=== PATIENT | male | born 1950 | race Caucasian/White ===

== ENCOUNTER 2017-10-07 15:59 | Emergency (ER) | payer MEDICARE ==
[~2017-10-07] VITALS: Ht 177.8 cm; Wt 81.6 kg
[~2017-10-07 15:59] MED LIST: ASP325T PO; EZET10TA5 PO; HYDR-3720 PO; HYDR-3729 PO; INSASP10V SQ; INSU100C4 SQ; METO-310 PO; MTF500T PO; ONDA4TAB8 PO; SITA100T PO; TAMS0.4C2 PO; [UNRECOGNIZED DRUG - CODE] PO; [UNRECOGNIZED DRUG - OTHER] PO; metoprolol
--- OUTSIDE RECORDS SUMMARY | 2017-10-07 16:04 | XMS REPORT | Continuity of Care Document ---
Author Author [employer] Organization [facility] Address Unknown Phone Unavailable Care Team Providers Care Sliver Former Name Role Phone [employer] Unavailable Unavailable Problems Medications Allergies, Adverse Reactions, Alerts Immunizations Results Vital Signs Encounters Location Location Details Encounter Type Encounter Number Reason For Visit Attending Provider ADM Date DC Date Status Source OUTPATIENT [id number] CELENA LUGO 08/29/2016 08/29/2016 Active [facility] OUTPATIENT [id number] CELENA LUGO 03/04/2017 Active [facility] O Active [facility] Procedures Plan of Care Social History Assessment and Plan Family History Advance Directives Functional Status
--- OUTSIDE RECORDS SUMMARY | 2017-10-07 16:05 | XMS REPORT | Clinical Summary ---
Author Author [facility] Organization [facility] Address Unknown Phone Unavailable Care Team Providers Care Curriculum And Assessment Coordinator Name Role Phone Beny Chavis MD Unavailable Yoel Mccrary PA-C Unavailable Nick Martínez MD Unavailable Doroteo Patrick MD Unavailable Sia Krause PRODUCT ACCOUNTANT Unavailable Unavailable Tramaine Matias MD PCP Patrizia Alvarado PRODUCT ACCOUNTANT Unavailable Source Comments Some departments are not documenting in the electronic medical record. If you do not see the information that you expected, contact Release of Information in the Health Information Management department at [phone] for further assistance in locating additional records.[facility] Allergies Active Allergy Reactions Severity Noted Date Comments Pioglitazone PALPITATIONS 06/04/2011 Amlodipine-Olmesartan JOINT PAIN 06/04/2011 Rosuvastatin SEE COMMENTS 06/04/2011 Muscle weakness Enalapril SEE COMMENTS 06/04/2011 Muscle weakness Iodine HYPOTENSION 06/04/2011 Atorvastatin SEE COMMENTS 06/04/2011 Muscle weakness Simvastatin SEE COMMENTS 06/04/2011 Muscle weakness Current Medications Prescription Sig. Disp. Refills Start End Date Status Date MULTIVITAMIN WITH Take 1 Tab by mouth Active MINERALS (MULTIVITAMIN & daily. MINERAL FORMULA PO) metoprolol (LOPRESSOR) 25 Take 12.5 mg by mouth Active mg tablet twice daily. aspirin EC 81 mg tablet Take 1 Tab by mouth 90 Tab 3 01/25/20 Active daily. 13 sildenafil(+) (VIAGRA) 50 Take 1 Tab by mouth as 10 Tab 5 01/25/20 Active mg tablet Needed for Erectile 13 dysfunction. lovastatin(+) (MEVACOR) Take 1 Tab by mouth every 07/26/19 Active 20 mg tablet 48 hours. 14 metFORMIN (GLUCOPHAGE) TAKE ONE TABLET BY MOUTH 60 Tab 6 08/19/19 Active 1,000 mg tablet TWICE DAILY WITH FOOD 17 coQ10 (ubiquinol) 100 mg Take 1 Cap by mouth Active cap daily. linagliptin-metformin Take 1 Tab by mouth 90 Each 3 09/02/19 Active (JENTADUETO XR) 5-1,000 daily. Will replace 17 mg TBph individual linagliptin and metformin because in combo [facility] CONTOUR test Use 1 Strip as directed 400 Strip 3 09/05/19 Active strip before meals and at 17 bedtime. E11.65 Blood-Glucose Meter Use as directed 1 Kit 0 09/06/19 Active (CONTOUR METER) kit 17 clobetasol (TEMOVATE) 03/02/20 Active 0.05 % topical cream 17 ezetimibe (ZETIA) 10 mg Take 0.5 tablets by mouth 45 tablet 3 Active tablet daily. 17 temazepam (RESTORIL) 15 Take 1 capsule by mouth 90 capsule 3 03/04/20 Active mg capsule at bedtime as needed. 17 Active Problems Problem Noted Date Dog bite 1.201612/20/2016 Overview: Dog bit lower legs bilat in May-Jun 2016; [facility]. Antibiotics wound treatment; returned for check ups? Did not remember going back Chews tobacco 06/29/2014 Last Assessment & Plan: Complete cessation of all tobacco products recommended,. Insomnia 01/24/2013 Last Assessment & Plan: I suggested that he try temazepam rather than Benadryl for his insomnia. Erectile dysfunction 01/24/2013 Last Assessment & Plan: OK to try 50 mg Viagra--prescription sent Abnormal cardiovascular stress test 10/05/2012 S/P CABG (coronary artery bypass graft) 10/05/2012 Overview: 05/2011 - CAB X 4 ([place]). [id number]. SVG-OM. SVG-LPD. Allergic to radiographic dye 10/05/2012 Angina pectoris (HCC) 10/05/2012 Agent [place] poisoning 07/25/2011 Dyslipidemia 07/25/2011 Overview: Does not tolerate statins L ast Assessment & Plan: He is willing to add Zetia 5 mg per day in an effort to get his LDL below 70. We will follow-up with him in about 6 weeks and arrange for a follow-up lipid profile. HTN (hypertension) 06/05/2011 Last Assessment & Plan: His BP at home is about 130/70 and I think he simply has a little bit of whitecoat hypertension. CAD (coronary artery disease) 06/04/2011 Overview: 06/04/2011 - Presented with exertional angina. Cath in [place] 06/04/11 ( Herminio Amaro MD): LV EDP 20. EF 60%. 50% distal L main. Ostial 60% LAD. Subtotal mid-LAD. 50% proximal MEDIA STRATEGIST. 95% ostial OM-1. Non-dominant RCA. Referred for CABG. 05/2011 - CAB X 4 ([place]). [id number]. SVG-OM. SVG-LPD. 08/30/12 abnormal stress thallium, LVEF 60%, reversible defect involving the distal anterior, anterior septal, apical and distal inferior adhikari likely in the LAD territory. 10/05/12: Cardiac Cath; No LV gram: [place] LAD with 99% stenosis, non functional MCLEAN to LAD with distal Kink. (Xience ADALBERTO 3.0 x 18, 3.0 x 12). Distal left main 30-40% stenosis. Left Circumflex with 30% proximal, 50% distal. Patent SVG of OM, Occluded [place] RCA with occluded SVG to LPDA- Continue ASA lifelong & Plavix >/=1 year w/o interruption. 04/2015 Kahi TM Thallium: EF 65%. Mildly abnormal, but not high risk. Mild distal LAD ischemia is present and was seen mainly on the stress upright images. No high risk prognostic indicators present. Exercise ECG is positive for ischemia, the changes occurred at peak exercise and they resolved in recovery. Excellent exercise capacity with a normal heart rate and hypertensive blood pressure response to exercise (in stage III the OV=559/40 mmHg, on the second minute of recovery the CE=961/40 mmHg). L ast Assessment & Plan: I have recommended surveillance stress testing every 3 years and will schedule a myocardial perfusion study I see below back next year. He is very active and has no angina symptoms. Type II diabetes mellitus (HCC) 06/04/2011 Last Assessment & Plan: 03-10-14 glucose 131, A1c 6.2% metformin dosing just altered per endocrinology last week. Vitamin D 25-OH level=72. Patient inquired regarding vitamin D dosing, he'll add up all the vitamin D in each of his supplements and inform endocrinology Recommended weight maintenance. Dietitian available via endocrinology p.r.n. Resolved Problems Problem Noted Date Resolved Date Acute blood loss anemia 06/06/2011 10/05/2012 Immunizations Name Dates Previously Given Next Due FLU VACCINE >3YO 04/15/2012 Flu Vaccine Trivalent=>3 04/05/2015, 03/08/2014 Yo (Preservative Free) Family History Medical History Relation Name Comments Circulatory problem Brother Cancer Father lung Cancer Mother ovarian Relation Name Status Comments Brother Alive Father (Age 68) Mother (Age 73) Social History Tobacco Use Types Packs/Day Years Used Date Former Smoker 0.5 Smokeless Tobacco: Chew Quit: Current User 06/04/1975 Tobacco Cessation: Counseling Given: No Alcohol Use Drinks/Week oz/Week Comments No Sex Assigned at Date Recorded Not on file Last Filed Vital Signs Vital Sign Reading Time Taken Blood Pressure 158/82 03/04/2017 10:41 AM CDT Pulse 70 03/04/2017 10:41 AM CDT Temperature 37.3 C (99.1 F) 10/05/2015 12:22 PM CDT Respiratory Rate 16 04/15/2012 10:55 AM CDT Oxygen Saturation 97% 10/05/2015 7:50 PM CDT Inhaled Oxygen - - Concentration Weight 74 kg (163 lb 1.6 oz) 03/04/2017 10:41 AM CDT Height 181.6 cm (5' 11.5") 03/04/2017 10:41 AM CDT Body Mass Index 22.43 03/04/2017 10:41 AM CDT Plan of Treatment Health Maintenance Due Date Last Done Comments HEPATITIS C SCREENING 1949 PERTUSSIS VACCINE 1960 TETANUS VACCINE 1966 COLORECTAL CANCER 1999 SCREENING PHYSICAL (COMPREHENSIVE) 07/11/2012 07/11/2011 EXAM ABDOMINAL AORTIC ANEURYSM 2014 SCREENING PREVNAR/PNEUMOVAX (#2) 03/15/2017 03/15/2016 HBA1C 06/21/2017 12/19/2016, 08/29/2016, 04/05/2015, Additional history exists MICROALBUMIN 08/29/2017 08/29/2016, 09/09/2013 DILATED EYE EXAM 12/19/2017 12/19/2016 FOOT EXAM 12/19/2017 12/19/2016, 08/29/2016, 06/15/2011 (Previously completed) INFLUENZA VACCINE 03/15/2018 03/15/2016, 04/05/2015, 03/08/2014, Additional history exists SHINGLES VACCINE Completed 03/15/2016 Results Not on filefrom Last 3 Months
--- OUTSIDE RECORDS SUMMARY | 2017-10-07 16:05 | XMS REPORT | Continuity of Care Document ---
Author Author [facility] Organization [facility] Address Unknown Phone Unavailable Allergies Active Description Code Type Severity Reaction Onset Reported/Identified Relationship to Patient Clinical Status Yes iodine [id number] Drug Allergy Severe N/A 11/12/2009 Yes amlodipine besylate [id number] Drug Allergy Unknown N/A 10/03/2015 Yes atorvastatin calcium [id number] Drug Allergy Unknown N/A 10/03/2015 Yes enalapril [id number] Drug Allergy Unknown N/A 10/03/2015 Yes ezetimibe [id number] Drug Allergy Unknown N/A 10/03/2015 Yes olmesartan medoxomil [id number] Drug Allergy Unknown N/A 10/03/2015 Yes pioglitazone HCl [id number] Drug Allergy Unknown N/A 10/03/2015 Yes rosuvastatin calcium [id number] Drug Allergy Unknown N/A 10/03/2015 Yes simvastatin [id number] Drug Allergy Unknown N/A 10/03/2015 Medications There is no data. Problems Date Dx Coded Attending Type Code Diagnosis Diagnosed By 11/13/2009 Ot 592.1 11/13/2009 Ot 789.09 06/04/2011 Ot 250.00 06/04/2011 Ot 272.4 06/04/2011 Ot 401.9 06/04/2011 Ot 411.1 06/04/2011 Ot 414.01 06/04/2011 Ot V58.69 08/04/2011 Ot V45.81 08/04/2011 Ot V57.89 07/30/2012 Ot 562.10 07/30/2012 Ot V76.51 07/20/2014 Ot 250.00 07/20/2014 Ot 397.0 07/20/2014 Ot 401.9 07/20/2014 Ot 424.0 07/20/2014 Ot 786.50 07/20/2014 Ot V72.84 07/20/2014 Ot 250.00 07/20/2014 Ot 397.0 07/20/2014 Ot 401.9 07/20/2014 Ot 424.0 07/20/2014 Ot 786.50 07/20/2014 Ot V72.84 10/02/2015 CATALAN DO, JAVON L Ot N20.0 CALCULUS OF KIDNEY 10/02/2015 CATALAN DO, JAVON L Ot Z87.442 PERSONAL HISTORY OF URINARY CALCULI 10/03/2015 JASS CONLEY MD Ot E11.9 TYPE 2 DIABETES MELLITUS WITHOUT COMPLIC 10/03/2015 JASS CONLEY MD Ot I25.10 ATHSCL HEART DISEASE OF [place] CORONARY 10/03/2015 JASS CONLEY MD Ot N13.30 UNSPECIFIED HYDRONEPHROSIS 10/03/2015 JASS CONLEY MD Ot N20.2 CALCULUS OF KIDNEY WITH CALCULUS OF [place] 10/03/2015 JASS CONLEY MD Ot Z79.4 QA LEAD (CURRENT) USE OF INSULIN 10/03/2015 CATALAN DO, JAVON L Ot N20.0 CALCULUS OF KIDNEY 10/03/2015 CATALAN DO, JAVON L Ot Z87.442 PERSONAL HISTORY OF URINARY CALCULI 11/14/2015 CATALAN DO, JAVON L Ot N20.0 CALCULUS OF KIDNEY 11/14/2015 CATALAN DO, JAVON L Ot Z87.442 PERSONAL HISTORY OF URINARY CALCULI 01/14/2016 CATALAN DO, JAVON L Ot N20.0 CALCULUS OF KIDNEY 01/14/2016 CATALAN DO, JAVON L Ot Z87.442 PERSONAL HISTORY OF URINARY CALCULI 05/15/2016 CATALAN DO, JAVON L Ot N20.0 CALCULUS OF KIDNEY 05/15/2016 CATALAN DO, JAVON L Ot Z87.442 PERSONAL HISTORY OF URINARY CALCULI 10/13/2016 CATALAN DO, JAVON L Ot N20.0 CALCULUS OF KIDNEY 10/13/2016 CATALAN DO, JAVON L Ot Z87.442 PERSONAL HISTORY OF URINARY CALCULI 12/13/2016 CATALAN DO, JAVON L Ot N20.0 CALCULUS OF KIDNEY 12/13/2016 CATALAN DO, JAVON L Ot Z87.442 PERSONAL HISTORY OF URINARY CALCULI Procedures There is no data. Results There is no data. Encounters ACCT No. Visit Date/Time Discharge Status Pt. Type Provider Facility Loc./Unit Complaint [id number] 10/02/2015 20:07:00 10/03/2015 07:36:00 DIS Inpatient YAEL GODWIN, JASS Gloria [facility] 4TH INTRACTABLE N/V,KIDNEY STONE [id number] 10/02/2015 12:35:00 10/02/2015 13:50:00 DIS Outpatient HOSSEIN FULLER, JAVON Aguilar [facility] ER RIGHT FLANK PAIN [id number] 10/07/2017 16:01:00 ACT Emergency LIEN GODWIN, ALFONSO Almaguer [facility] ER RIGHT FINGER LAC [id number] 07/20/2014 09:09:00 Document Registration [id number] 07/30/2012 09:41:00 Document Registration [id number] 07/28/2012 08:21:00 Document Registration [id number] 08/04/2011 11:58:00 Document Registration [id number] 06/04/2011 16:05:00 Document Registration [id number] 06/03/2011 10:00:00 Document Registration [id number] 11/12/2009 22:35:00 Document Registration
--- NOTE | 2017-10-07 16:49 | Diagnostic Imaging Report ---
PATIENT HISTORY: Injury of the right hand with lacerations of the right first, second, and third digits. Cut hand with saw. TECHNIQUE: Four views of the right hand. COMPARISON: None. FINDINGS: There is a comminuted fracture through the neck of the right thumb proximal phalanx, with significant bone void dorsally. There is flexion of the interphalangeal joint consistent with rupture of the extensor tendon. A soft tissue defect is seen dorsal to the interphalangeal joint. There is also a markedly comminuted fracture involving the index finger middle phalangeal head and neck, and possibly the distal phalangeal base as well. There is mild radial angulation of the distal phalanx with persistent flexion of the distal interphalangeal joint consistent with extensor tendon rupture. There is overlying soft tissue edema and laceration. At the long finger, there is a focal bone defect at the radial aspect of the distal proximal phalangeal neck and shaft, with overlying laceration at the soft tissues radially and dorsally. Small hyperdensities are seen at the volar soft tissues of the middle finger, thought to be external to the patient. No significant displacement is seen. A linear 4 mm hyperdensity is seen in the soft tissues of the ulnocarpal joint, appears to represent a foreign body. No radiopaque foreign body is seen in the fingers. IMPRESSION: 1. Fractures of the first proximal phalanx, second middle phalanx, likely second distal phalanx, and third proximal phalanx, as described above. There are associated soft tissue lacerations and injuries of the first and second extensor tendons. 2. Linear 4 mm foreign body in the region of the right ulnocarpal joint. Dictated by: Dictated on workstation # [id number]
[2017-10-07] MEDS ORDERED: LIDOCAINE 1% INJ 50 ML (XYLOCAINE) VIAL IJ ONE (17:15)
[2017-10-07] MEDS ORDERED: LIDOCAINE 2% 20 ML (XYLOCAINE) VIAL INJ ONE (17:15)
[2017-10-07] MEDS ORDERED: cefTRIAXone 1 GM (ROCEPHIN) VIAL IM ONE (17:15)
--- NOTE | 2017-10-07 18:40 | ED Upper Extremity ---
General Chief Complaint: Upper Extremity Stated Complaint: RIGHT FINGER LAC Nursing Triage Note: c/o lacerations to right 1st, 2nd, and 3rd digits right hand. Pt cut hand with a saw at work. 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 He is self-employed. Tetanus is up-to-date within the last 5 years. He is a type II diabetic controlled with metformin. Onset: just prior to arrival Severity: moderate Pain/Injury Location: right thumb, right 2nd finger, right 3rd finger Modifying Factors: Worse With Movement Allergies and Home Medications Allergies Coded Allergies: iodine (Unverified Allergy, Severe, 11/12/09) amlodipine besylate (Verified Allergy, Unknown, 10/03/15) atorvastatin calcium (Verified Allergy, Unknown, 10/03/15) enalapril (Verified Allergy, Unknown, 10/03/15) ezetimibe (Verified Allergy, Unknown, 10/03/15) olmesartan medoxomil (Verified Allergy, Unknown, 10/03/15) pioglitazone HCl (Verified Allergy, Unknown, 10/03/15) rosuvastatin calcium (Verified Allergy, Unknown, 10/03/15) simvastatin (Verified Allergy, Unknown, 10/03/15) Home Medications Acetaminophen with Codeine 1 Each Tablet, 1 EACH PO Q4H PRN for PAIN-MODERATE Prescribed by: SHERRI PHELPS on 10/07/171842 Aspirin 325 Mg Tab, 325 MG PO DAILY, (Reported) Ezetimibe 10 Mg Tablet, 10 MG PO DAILY@0900, (Reported) Hydrocodone/Acetaminophen 1 Each Tablet, 1 EACH PO Q6H Prescribed by: JAVON CATALAN on 10/02/15 1344 Hydrocodone/Acetaminophen 1 Each Tablet, 1 EACH PO Q4H PRN for PAIN-MODERATE TO SEVERE Prescribed by: SHERRI PHELPS on 10/07/171842 Insulin Glargine,Hum.rec.anlog 300 Units/3 Ml Soln, 15 UNITS SQ HS, (Reported) Insulin Human Lispro 100 U/Ml Vial, 8 SQ DAILY AC, (Reported) UNITS Metoclopramide HCl 10 Mg Tablet, 10 MG PO Q6H PRN for NAUSEA Prescribed by: JAVON CATALAN on 10/02/15 2244 Multivitamin W-Minerals/Lutein 1 Each Tablet, 1 EACH PO BID, (Reported) Ondansetron 4 Mg Tab.rapdis, 4 MG PO Q6H PRN for NAUSEA Prescribed by: JAVON CATALAN on 10/02/15 1344 Sulfamethoxazole/Trimethoprim 1 Each Tablet, 1 EACH PO BID Prescribed by: SHERRI PHELPS on 10/07/17 1843 Tamsulosin HCl 0.4 Mg Cap.er.24h, 0.4 MG PO DAILY Prescribed by: JAVON CATALAN on 10/02/15 1344 Patient Home Medication List Home Medication List Reviewed: Yes Constitutional: see HPI EENTM: see HPI Respiratory: no symptoms reported Cardiovascular: no symptoms reported Genitourinary: no symptoms reported Musculoskeletal: see HPI Skin: see HPI Psychiatric/Neurological: No Symptoms Reported Past Xngyhed-Nkffbi-Ftgdai Hx Patient Social History Recent Foreign Travel: No Contact w/Someone Who Travel: No Recent Infectious Disease Expo: No Immunizations Up To Date Date of Pneumonia Vaccine: Jul 30, 2010 Date of Influenza Vaccine: Apr 15, 2012 Past Medical History Cardiac Reproductive Disorders: No Kidney Infection, Kidney Stones Diabetes, Insulin dep Family Medical History FH: emphysema 19 FATHER FH: ovarian cancer 19 MOTHER Hypertension 19 FATHER Myocardial infarction 19 FATHER Physical Exam Vital Signs Vital Signs - First Documented 10/07/17 16:00 Temp 98.2 Pulse 70 Resp 16 B/P (MAP) 153/98 (116) Pulse Ox 98 O2 Delivery Room Air Capillary Refill : Less Than 3 Seconds General Appearance: WD/WN, no apparent distress HEENT: PERRL/EOMI, normal ENT inspection Neck: non-tender, full range of motion Respiratory: no respiratory distress, no accessory muscle use Gastrointestinal: normal bowel sounds, non tender Shoulder: normal inspection, non-tender Elbow/Forearm: normal inspection, non-tender Wrist: Yes normal inspection, Yes non-tender Hand: Right, laceration (To the dorsal right thumb there is a 5 cm laceration with depth into the bone and certainly through the extensor tendon. To the right pointer finger there is a 6 cm laceration dorsally over the DIP joint with depth into the interphalangeal joint space. To the middle finger is a 3 cm laceration over the dorsal PIP joint with depth to the extensor tendon but he does maintain extensor tendon functions at the PIP joint. He does not maintain the ability to extend the distal thumb or the distal pointer finger there is definitely an extensor tendon laceration) Neurologic/Tendon: motor deficit, sensory deficit, tendon function deficit, tendon injury visualized Neurologic/Psychiatric: alert, normal mood/affect, oriented x 3 Skin: normal color, warm/dry Comments There is capillary refill to the distal most aspect of the pointer finger middle finger and thumb. However, there is delayed capillary refill to the dorsal aspect of the pointer finger just proximal to the fingernail. Procedures/Interventions Wound Location: Upper Extremities (14) Wound Length (cm): 14 Wound's Depth, Shape: bone, sub Q, tendon Wound Explored: clean Irrigated w/ Saline (ccs): 500 Anesthesia: 1% Lidocaine Volume Anesthetic (ccs): 15 Suture: Prolene Suture Size: 4-0 Number of Sutures: 22 Layer Closure?: 1 Number Deep Layer Sutures: 0 Progress At the thumb was anesthetized with a digital block using 3 mL of 2% lidocaine without epinephrine. Wound then scrubbed with chlorhexidine/saline solution then irrigated thoroughly with 200 mL of chlorhexidine/saline solution. Wound was then closed with 6 horizontal mattress sutures and one simple interrupted suture size 4-0 Prolene. The thumb laceration measured 5 cm. Next the pointer finger was anesthetized with 2% lidocaine without epinephrine via a digital block. Wound was then scrubbed with chlorhexidine/saline solution then irrigated with 200 mL of the same. There is a visualized extensor tendon laceration and laceration extension into the interphalangeal joint space. This was closed with 10 simple interrupted sutures and 2 horizontal mattress sutures. The middle finger has a 3 cm laceration over the PIP joint dorsally. This was anesthetized also with a digital block to milliliters of 2% lidocaine without epinephrine. This was then scrubbed with chlorhexidine/saline solution then irrigated with 100 mL of the same. Closed with 6 horizontal mattress sutures and one simple a ruptured suture. Size 4-0 Prolene. Progress/Results/Core Measures My Orders Orders - SHERRI PHELPS APRN Lidocaine 2% Injection 20 Ml (Xylocaine (10/07/17 17:15) Ceftriaxone Injection (Rocephin Injectio (10/07/17 17:15) Lidocaine 1% Inj 50 Ml (Xylocaine 1% Inj (10/07/17 17:15) Medications Given in ED Current Medications Medications Dose Ordered Sig/Marybel Route Start Time Stop Time Status Last Admin Dose Admin Ceftriaxone Sodium 1,000 mg ONCE ONCE IM 10/07/17 17:15 10/07/17 17:16 DC 10/07/17 17:20 1,000 MG Lidocaine HCl 2.1 ml ONCE ONCE IJ 10/07/17 17:15 10/07/17 17:16 DC 10/07/17 17:20 2.1 ML Lidocaine HCl 10 ml ONCE ONCE INJ 10/07/17 17:15 10/07/17 17:16 DC 10/07/17 17:12 10 ML Vital Signs/I&O 10/07/17 10/07/17 10/07/17 10/07/17 16:00 17:12 17:20 17:20 Temp 98.2 98.2 98.2 98.2 Pulse 70 Resp 16 B/P (MAP) 153/98 (116) Pulse Ox 98 O2 Delivery Room Air Blood Pressure Mean: 116 Departure Communication (Admissions) Discussed with the patient and his family the importance of follow-up with hand surgery to evaluate and repair the extensor tendons. Dr. Craven did see the patient at the bedside with me and agrees with plan of care. I also spoke with Dr. Phillips on-call for orthopedic surgery, and he agrees to relay the patient' s information to Dr. Claros. I will have the patient call Dr. Claros tomorrow for follow-up NOELLE. He states he does not 1 anything strong for pain, I suggested hydrocodone and he states he would take this but he would like to try Tylenol with Codeine in case the hydrocodone is too strong Impression Primary Impression: Finger laceration with complication Additional Impression: Finger laceration involving tendon Disposition: 01 HOME, SELF-CARE Condition: Stable Departure-Patient Inst. Decision time for Depature: 18:41 Referrals: JASS CONLEY MD (PCP/Family) Primary Care Physician DANITA CLAROS DO Patient Instructions: Laceration Repair With Stitches (DC) Add. Discharge Instructions: 1. Change the dressings daily. Wear the finger splints at all times except when showering. You may shower and let water run over the starting tomorrow but certainly do not soak them in water such as a dish sink, bathtub or hot tub or swimming pool until the stitches are removed. The stitches should be removed in about 10-[address] Claros tomorrow morning first thing to make an appointment to be seen as soon as possible. Preferably, this week. All discharge instructions reviewed with patient and/or family. Voiced understanding. Scripts Acetaminophen with Codeine (Tylenol with Codeine #3 Tablet) 1 Each Tablet 1 EACH PO Q4H PRN for PAIN-MODERATE, #14 TAB Prov: SHERRI PHELPS APRN 10/07/17 Hydrocodone/Acetaminophen ([place] 5-325 Tablet) 1 Each Tablet 1 EACH PO Q4H PRN for PAIN-MODERATE TO SEVERE, #30 TAB Prov: SHERRI PHELPS APRN 10/07/17 Sulfamethoxazole/Trimethoprim (Bactrim Ds Tablet) 1 Each Tablet 1 EACH PO BID, #14 TAB Prov: SHERRI PHELPS APRN 10/07/17 Copy Copies To 1: DANITA CLAROS PETER J APRN Oct 07, 2017 18:40
[2017-10-07] MEDS ORDERED: ACET-789 PO (18:43)
[2017-10-07] MEDS ORDERED: HYDR-757 PO (18:43)
[2017-10-07] MEDS ORDERED: SULF1TAB35 PO (18:43)
[2017-10-07 19:15] VITALS: BP 150/90
== END 2017-10-07 19:15 | disposition home or self-care (01) ==
LOC: EDUNIT# 15:59 → ER 16:01
DX: S56.521A Laceration of other extensor muscle, fascia and tendon at forearm level, right arm, initial encounter (principal); S61.212A Laceration without foreign body of right middle finger without damage to nail, initial encounter; S61.210A Laceration without foreign body of right index finger without damage to nail, initial encounter; E11.9 Type 2 diabetes mellitus without complications; Z79.84 Long term (current) use of oral hypoglycemic drugs; Z87.442 Personal history of urinary calculi; Z82.49 Family history of ischemic heart disease and other diseases of the circulatory system; Z80.41 Family history of malignant neoplasm of ovary; Z91.040 Latex allergy status; Z88.8 Allergy status to other drugs, medicaments and biological substances; Z79.82 Long term (current) use of aspirin; Z79.4 Long term (current) use of insulin; Z87.448 Personal history of other diseases of urinary system; W29.8XXA Contact with other powered hand tools and household machinery, initial encounter; Y99.0 Civilian activity done for income or pay
CPT/HCPCS: 64450; 73130; 96372

== ENCOUNTER → 2020-05-21 | Outpatient (CLI) | payer MEDICARE ==
[~2020-05-21] MED LIST changes: +ACET-789 PO; +HYDR-4226 PO; +SULF1TAB35 PO
--- NOTE | 2020-05-22 09:48 | NUR ---
notified patient of positive COVID test. He was scheduled for stents at on Thursday and his Dr is aware he tested positive for COVID. Patient reports slight cough for the last week. I notified Dr Craven and [facility] of possible candidate for [facility] out patient infusion. They will review patient for qualifications. Patient reports willing to try it.
== END ==
LOC: LABNPT 05:51
PROVIDERS: ATTEND Internal Medicine Cardiovascular Disease
DX: U07.1 COVID-19 (principal)
CPT/HCPCS: 87635

== ENCOUNTER 2020-05-22 14:49 | Outpatient (CLI) | payer MEDICARE ==
[~2020-05-22] VITALS: Ht 180 cm; Wt 77.2 kg
[2020-05-22 14:59] VITALS: BP 171/82
[2020-05-22] MEDS ORDERED: BAMLANIVIMAB 700 MG in NS 200 ML IV ONE (15:00)
[2020-05-22] MEDS ORDERED: diphenhydrAMINE 50 MG/ML INJ (BENADRYL) IV PRN (15:00)
[2020-05-22] MEDS ORDERED: EPINEPHrine INJECTION 1 MG/ML AMP IM PRN (15:00)
[2020-05-22 16:07] VITALS: BP 153/74
== END 2020-05-22 17:05 | disposition home or self-care (01) ==
LOC: INFUSION 14:49
PROVIDERS: ATTEND Family Medicine
DX: I25.10 Atherosclerotic heart disease of native coronary artery without angina pectoris (principal); E11.9 Type 2 diabetes mellitus without complications; U07.1 COVID-19

== ENCOUNTER → 2020-06-11 | Outpatient (CLI) | payer MEDICARE | LOC: LABNPT 05:29 | PROVIDERS: ATTEND Internal Medicine Cardiovascular Disease | DX: Z01.812 Encounter for preprocedural laboratory examination (principal); U07.1 COVID-19 | CPT/HCPCS: 87635 ==

== ENCOUNTER → 2022-11-11 | Outpatient (CLI) | payer MEDICARE ==
[~2022-11-11] MED LIST changes: -SULF1TAB35 PO; +SULF1TAB38 PO
--- NOTE | 2022-11-11 10:37 | Diagnostic Imaging Report ---
CHEST 1 VIEW, AP/PA ONLY Indication: Chest pain. Comparison: None available. Findings: No focal airspace disease in the visualized lungs. No pleural effusion or pneumothorax. Status post CABG. Sternotomy wires are in place. No unintended radiopaque foreign body. Impression: 1. No unintended radiopaque foreign body or implanted device that would preclude MRI examination. Okay to proceed with MRI based on chest radiograph. Dictated by: Dictated on workstation # [id number]
--- NOTE | 2022-11-11 10:46 | Diagnostic Imaging Report ---
EXAMINATION: ORBITS FOREIGN BODY BILATERAL. INDICATION: Pre-MRI clearance. COMPARISON: None available. TECHNIQUE: Two views of the skull. FINDINGS: There is a 2 mm rounded metallic BB located in the left supraorbital region. Based on 2 views, this is either embedded within the skull or abuts the calvarium. No other radiopaque foreign body. Paranasal sinuses are clear. IMPRESSION: A left supraorbital metallic BB is present. I discussed the process needed for further clearance for MRI with the pathology technologist Darcy at the time of dictation. Dictated by: Dictated on workstation # [id number]
--- NOTE | 2022-11-11 12:27 | Diagnostic Imaging Report ---
INDICATION: Knee pain for several months. EXAMINATION: Right knee MRI without contrast on 11/11/2022. FINDINGS: There is T2 hyperintensity within the proximal patellar tendon which appears to represent focal tendinosis. A small partial intrasubstance tear is not excluded but no discontinuity is noted. The distal quadriceps tendon is intact. The ACL and PCL are intact. The MCL is intact; however, there is mild surrounding edema suggesting a strain. The lateral collateral ligamentous complex appears intact. There is myxoid degeneration throughout the posterior and anterior horns of the lateral meniscus with no focal tear appreciated. There is a multidirectional tear throughout the posterior horn and undersurface of the body of the medial meniscus. A prominent radial component is noted within the posterior horn near the meniscal root. Mild medial extrusion of the meniscus is seen into the meniscal gutter. There is a septated cystic collection adjacent to the fibular head, most consistent with a ganglion. Small cystic changes are noted within the fibular head itself and in the adjacent lateral border of the lateral tibial plateau, consistent with osteoarthritic changes. Similar findings are seen within the medial tibial plateau. There is mild to moderate thinning of the cartilage in the medial compartment with the cartilage in the lateral joint space maintained. 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 There is a small joint effusion. There is a small Salinas's cyst with adjacent edema suggesting leakage. There is no acute osseous abnormality. IMPRESSION: 1. Diffuse tear of the posterior horn and body of the medial meniscus. Lateral meniscus is intact. 2. Findings suggestive of an MCL sprain. 3. Tendinosis versus a small partial intrasubstance tear of the proximal patellar tendon. The remaining tendons and ligaments are intact. 4. Mild degenerative findings as above. 6. Likely leaking Salinas's cyst. Dictated by: Dictated on workstation # [id number]
== END ==
LOC: RAD 10:02
PROVIDERS: ATTEND Family Medicine
DX: S83.241D Other tear of medial meniscus, current injury, right knee, subsequent encounter (principal); X58.XXXD Exposure to other specified factors, subsequent encounter; M17.11 Unilateral primary osteoarthritis, right knee
CPT/HCPCS: 71045; 73721